=== PATIENT | female | born 1955 | race Caucasian/White ===

== ENCOUNTER → 2016-09-04 | Outpatient (REF) | payer BC | LOC: M LAB REF 16:18 | PROVIDERS: ATTEND Obstetrics & Gynecology | DX: N39.46 Mixed incontinence (principal) ==

== ENCOUNTER → 2016-09-16 | Outpatient (CLI) | payer OTHER ==
[~2016-09-16] MED LIST: ASPI1TAB PO; FLUO20CA8 PO; IBUP200C PO; NEXI40CA PO; VITA-130 PO; VITA500T3 PO
--- NOTE | 2016-09-16 11:02 | ECGEPIP ---
Stationary ECG Study [facility] Test Date: 2016-09-16 Pat Name: VILMA BIRMINGHAM Department: Room: - Gender: F [employer] Operator: CHRISTINE : 1955 Requested By: REGINA Jeong Order Number: [id number] Reading MD: Jacqui Carter Measurements Intervals [place] Rate: 54 P: 44 FL: 160 QRS: 10 QRSD: 90 T: 21 QT: 405 QTc: 385 Interpretive Statements SINUS BRADYCARDIA OTHERWISE NORMAL NO PRIOR Electronically Signed On 09-16-2016 11:02:50 EDT by Jacqui Carter
== END ==
LOC: M EKG 09:25
PROVIDERS: ATTEND Anesthesiology
DX: Z01.818 Encounter for other preprocedural examination (principal)

== ENCOUNTER → 2016-09-18 | Day surgery (SDC) | payer BC, OTHER ==
[~2016-09-18] VITALS: Ht 163.8 cm; Wt 73.9 kg
[~2016-09-18] MED LIST changes: +GLYCOPYRROLATE INJ 0.2 MG/ML 2 ML VIAL As Ordered ONE; +HYDROmorphone HCL 2 MG/ML 1ML VIAL (J1170) As Ordered ONE; +KETOROLAC 30 MG/ML VIAL (J1885) IV PRN; +LIDOCAINE 2% INJ 100 MG/5 ML SDV (FOR ANES.) As Ordered ONE; +LR 1,000 ML IV ONE; +LR 1,000 ML IV SCH; +MIDAZOLAM INJ 2 MG/2 ML VIAL (J2250) As Ordered ONE; +NEOSTIGMINE 1MG/ML 5 ML SYRINGE (J2710) As Ordered ONE; +ONDANSETRON 4MG/2ML VIAL (J2405) As Ordered ONE; +ONDANSETRON 4MG/2ML VIAL (J2405) IV PRN; +PERCOCET 5MG/325MG TAB As Ordered ONE; +PERCOCET 5MG/325MG TAB PO PRN; +PROPOFOL 200 MG/20 ML VIAL As Ordered ONE; +ROCURONIUM BROMIDE 50 MG/5 ML VIAL As Ordered ONE; +SCOPOLAMINE 1.5 MG TRANSDERMAL As Ordered ONE; +dexameTHASONE 4 MG/ML 1ML VIAL (J1100) As Ordered ONE; +ePHEDrine SULFATE 25 MG/5 ML(5MG/ML) SYRINGE As Ordered ONE; +fentaNYL 100 MCG/2 ML INJECTION (J3010) As Ordered ONE; +fentaNYL 250 MCG/5 ML INJECTION (J3010) As Ordered ONE
[2016-09-18 07:50] LABS: MEAN CORPUSCULAR HEMOGLOBIN 31.6 pg (27.0-33.0); MEAN CORPUSCULAR HGB CONC 32.6 g/dl (32.0-36.5); MEAN CORPUSCULAR VOLUME 96.8 fl (80.0-96.0); RED CELL DISTRIBUTION WIDTH 12.5 % (11.5-14.5); WHITE BLOOD COUNT 3.3 K/mm3 (4.0-10.0)
[2016-09-18] MEDS: VASOPRESSIN INJ 20 UNITS/ML VIAL As Ordered ONE ×2 (09:40→09:41)
[2016-09-18] MEDS: fentaNYL 100 MCG/2 ML INJECTION (J3010) IV PRN ×4 (12:36→12:52)
[2016-09-18] MEDS: MEPERIDINE INJ 25 MG/ML VIAL (J2175) IV PRN ×2 (13:07→13:17)
[2016-09-18 18:05] VITALS: BP 147/74
--- NOTE | 2016-09-20 18:58 | RO ---
DATE OF PROCEDURE: 09/18/2016 PREOPERATIVE DIAGNOSES/INDICATION FOR SURGERY: Symptomatic prolapse, stress urinary incontinence, and intrinsic sphincteric insufficiency. POSTOPERATIVE DIAGNOSES: Symptomatic prolapse, stress urinary incontinence, and intrinsic sphincteric insufficiency. PROCEDURE: Uterosacral suspension with anterior and posterior repair, perineorrhaphy, and midurethral sling (Desara) with cystourethroscopy. SURGEON: Karlene Bryant MD WEB MERCHANT: ANESTHESIA: General endotracheal anesthesia. BRIEF DESCRIPTION OF PROCEDURE AND FINDINGS: Jd was brought to the operating room where sufficient general endotracheal anesthesia was induced, and she was prepped, draped, and positioned in the usual sterile fashion. She had taken preoperative Pyridium at my request. The bladder was emptied, and the vaginal cuff was grasped. This patient has an external prolapse when at home but not a complete procidentia, about 3 cm out. Under anesthesia, it just sagged a little past the introitus while supine and not under any pressure. We injected with dilute vasopressin at the vaginal cuff and then made a transverse incision and carefully dissected away the cystocele and the enterocele sac and the rectocele. We then carefully worked our way posteriorly into the peritoneal cavity and the posterior aspect of the cystocele sac. We were then able, under traction, to grasp the uterosacral ligaments; and using those we placed three sutures on each side, two Prolene sutures which were #2-0 Prolene and then one #0 Vicryl, working the Prolenes more cephalad and the #0 Vicryl most caudad. We did this on both the left and the right uterosacral ligament. We then did cystoscopy, and there did not appear to be any efflux from the right ureter. So, we took down that side and re-did it, following which we were able to see with cystoscopy efflux of urine to the right ureter as well, of course with the stitches thrown. We then completed those pedicles, which had, of course, been secured anteriorly and posteriorly and were also used to close the enterocele sac; and as is my typical, the Vicryl was brought out into the vagina posteriorly, giving good posterior support to the vagina. We then removed an inverted rei of tissue anteriorly and dissecting back those tissues so that we could do an anterior repair, plicating the tissues side to side with #2-0 Vicryl. A similar thing was done posteriorly at the apex of the vagina where there was still some laxity. We then, separate from that dissection, having closed that space, proceeded to the perineorrhaphy with an inverted triangle of tissue removed at the perineum and then deep stitches of #0 Vicryl used to re-support the perineal body and reconnect it to the rectovaginal septum; and then the skin was closed there actually with #3-0. Then, we went anteriorly and injected again with vasopressin about a centimeter cephalad from the urethral meatus where there was a natural angle in the tissues. We then dissected laterally through the introduction of the trocar for the Desara midurethral sling, which was done bottom to top retropubically, and we carefully displaced the urethra to avoid injuring it using the red rubber-shod stylet and then placed first the left, then the right side trocar. There was some oozing on the right side, so after we had no trouble placing the left side trocar, there was no perforation of the bladder, etc., we then on the right side had some oozing there. I believe retropubic vessels because there was no injury to the bladder and we were working medial to our marker, so we watched this and observed it. I think in total she has about 100 mL blood loss for this case, some of which was in a small clot there, but it stopped on its own. Of course, we cannot really put good pressure there, but I could have opened that up and put anticoagulant, but I did not think it was needed because we watched this. It did not continue to expand. We were able to see it quite readily. I really only think it was well less than a 10 mL syringe size clot, so maybe 5 mL of clot visible displacing the bladder, and it did come up through the suprapubic exit port, but we sat and watched that and it stopped and did not appear to be collecting underneath and, of course, we had the mesh through, so there was a wick there that if it was continuing to expand, that it should have been able to track up easily and it did not track back down into the vaginal one, so I believe that that stopped on its own. So, we then put the spacer in, a #8 Lizeth, and the red rubber-shod and arsen the mesh up around those for a spacer and then removed the sheathing and trimmed off the mesh and, of course, removed the spacing and closed the vaginal and suprapubic wounds. The bladder was then again emptied, and the procedure was then ended. ESTIMATED BLOOD LOSS: Again, about 100 mL total for all the different steps. SPECIMEN: Just the redundant vaginal tissue. COMPLICATIONS: None. CONDITION AND DISPOSITION: Jd tolerated the procedure quite well. She was recovering in the recovery room in good condition. She has asked to be considered for discharge home today rather than tomorrow, so we are going to do a 4-hour postoperative hemoglobin and hematocrit and, of course, make sure she can void; but otherwise, we will go ahead and let her go today assuming all of those things fitter and turner well.
== END | disposition home or self-care (01) ==
LOC: M SDC 07:26
PROVIDERS: ATTEND Obstetrics & Gynecology
DX: N81.9 Female genital prolapse, unspecified (principal); N39.3 Stress incontinence (female) (male); N36.42 Intrinsic sphincter deficiency (ISD); C50.919 Malignant neoplasm of unspecified site of unspecified female breast; K21.9 Gastro-esophageal reflux disease without esophagitis; D72.819 Decreased white blood cell count, unspecified; F32.9 Major depressive disorder, single episode, unspecified; Z79.899 Other long term (current) drug therapy; Z79.82 Long term (current) use of aspirin; Z87.81 Personal history of (healed) traumatic fracture; Z90.710 Acquired absence of both cervix and uterus; Z92.3 Personal history of irradiation; Z92.21 Personal history of antineoplastic chemotherapy
CPT/HCPCS: 36415; 57283; 57288; 85014; 85018; 85027; 86850; 86900; 86901; 88302; C1771; J0690; J1100; J1170; J2175; J2250; J2405; J2710; J3010

== ENCOUNTER → 2017-01-03 | Outpatient (REF) | payer OTHER ==
[~2017-01-03] MED LIST changes: -GLYCOPYRROLATE INJ 0.2 MG/ML 2 ML VIAL As Ordered ONE; -HYDROmorphone HCL 2 MG/ML 1ML VIAL (J1170) As Ordered ONE; -IBUP200C PO; +IBUP200C10 PO; -KETOROLAC 30 MG/ML VIAL (J1885) IV PRN; -LIDOCAINE 2% INJ 100 MG/5 ML SDV (FOR ANES.) As Ordered ONE; -LR 1,000 ML IV ONE; -LR 1,000 ML IV SCH; -MIDAZOLAM INJ 2 MG/2 ML VIAL (J2250) As Ordered ONE; -NEOSTIGMINE 1MG/ML 5 ML SYRINGE (J2710) As Ordered ONE; -ONDANSETRON 4MG/2ML VIAL (J2405) As Ordered ONE; -ONDANSETRON 4MG/2ML VIAL (J2405) IV PRN; -PERCOCET 5MG/325MG TAB As Ordered ONE; -PERCOCET 5MG/325MG TAB PO PRN; -PROPOFOL 200 MG/20 ML VIAL As Ordered ONE; -ROCURONIUM BROMIDE 50 MG/5 ML VIAL As Ordered ONE; -SCOPOLAMINE 1.5 MG TRANSDERMAL As Ordered ONE; -VITA-130 PO; +VITA500T PO; -dexameTHASONE 4 MG/ML 1ML VIAL (J1100) As Ordered ONE; -ePHEDrine SULFATE 25 MG/5 ML(5MG/ML) SYRINGE As Ordered ONE; -fentaNYL 100 MCG/2 ML INJECTION (J3010) As Ordered ONE; -fentaNYL 250 MCG/5 ML INJECTION (J3010) As Ordered ONE
[2017-01-03 13:37] LABS: BASO % 1.1 % (0.0-1.0); EOS # 0.1 K/mm3 (0.0-0.50); EOS % 3.7 % (0.0-3.0); LARGE UNSTAINED CELL # 0.1 K/mm3 (0.0-0.4); LARGE UNSTAINED CELL % 1.8 % (0.0-4.0); LYMPH # 0.5 K/mm3 (1.5-4.5); LYMPH % 18.6 % (24.0-44.0); MEAN CORPUSCULAR HEMOGLOBIN 31.3 pg (27.0-33.0); MEAN CORPUSCULAR HGB CONC 34.3 g/dl (32.0-36.5); MEAN CORPUSCULAR VOLUME 91.2 fl (80.0-96.0); MONO # 0.2 K/mm3 (0.0-0.8); MONO % 7.3 % (0.0-5.0); NEUTROPHILS # 1.8 K/mm3 (1.8-7.7); NEUTROPHILS % 67.5 % (36.0-66.0); PLATELET COUNT, AUTOMATED 242 k/mm3 (150-450); RED CELL DISTRIBUTION WIDTH 12.6 % (11.5-14.5); WHITE BLOOD COUNT 2.7 K/mm3 (4.0-10.0)
[2017-01-03 13:44] LABS: ALBUMIN 3.9 GM/DL (3.2-5.2); ALBUMIN/GLOBULIN RATIO 1.34 (1.00-1.93); ALKALINE PHOSPHATASE 80 U/L (45-117); ALT/SGPT 19 U/L (12-78); ANION GAP 5 MEQ/L (8-16); AST/SGOT 13 U/L (15-37); BILIRUBIN,TOTAL 0.6 MG/DL (0.2-1.0); BLOOD UREA NITROGEN 18 MG/DL (7-18); CALCIUM LEVEL 8.9 MG/DL (8.8-10.2); CARBON DIOXIDE LEVEL 29 MEQ/L (21-32); CHLORIDE LEVEL 107 MEQ/L (98-107); CREATININE FOR GFR 0.62 MG/DL (0.55-1.02); FREE T4 0.93 NG/DL (0.76-1.46); GLOMERULAR FILTRATION RATE > 60.0 (>45); GLUCOSE, FASTING 83 MG/DL (80-110); POTASSIUM SERUM 4.2 MEQ/L (3.5-5.1); SODIUM LEVEL 141 MEQ/L (136-145); TOTAL PROTEIN 6.8 GM/DL (6.4-8.2)
== END ==
LOC: M SFHCADAM 08:52
PROVIDERS: ATTEND Family Medicine
DX: R13.10 Dysphagia, unspecified (principal); F32.89 Other specified depressive episodes; E55.9 Vitamin D deficiency, unspecified

== ENCOUNTER → 2017-01-24 | Outpatient (CLI) | payer OTHER ==
[~2017-01-24] MED LIST changes: +E-Z-GAS II EFFERVESCENT PACKET (SODIUM BICARB./CITRIC ACID/SIMETHICONE) As Ordered ONE; +E-Z-HD 98% w/w 340GM SUSP BTL As Ordered ONE; +E-Z-PAQUE 96% w/w SUSP 176GM BTL As Ordered ONE
--- NOTE | 2017-01-24 17:01 | REP ---
BARIUM SWALLOW: The procedure was performed by JUMANA Lawson under the direct supervision of Dr. Castellano. All imaging was reviewed with Dr. Castellano prior to dictation. The patient was able to ingest liquid barium and air in a quantity sufficient to produce a double contrast examination. The oral and pharyngeal stages of deglutition were within normal limits. Esophageal transport was prompt and efficient. There was no evidence of esophagitis, stricture or mucosal ring. Gastroesophageal reflux was observed to the level of the carol. The patient also has a moderate sized hiatal hernia. IMPRESSION: Gastroesophageal reflux to the level of the carol. Moderate sized hiatal hernia present. Fluoroscopy time was 1 minute and 57 seconds. Reviewed by JUMANA Dueñas 01/24/2017 05:05 PEdited and Signed by Eleazar Castellano MD 01/25/2017 07:57 P
== END ==
LOC: M RAD 07:35
PROVIDERS: ATTEND Family Medicine
DX: R13.13 Dysphagia, pharyngeal phase (principal)

== ENCOUNTER → 2017-02-14 | Outpatient (REF) | payer OTHER ==
[~2017-02-14] MED LIST changes: -E-Z-GAS II EFFERVESCENT PACKET (SODIUM BICARB./CITRIC ACID/SIMETHICONE) As Ordered ONE; -E-Z-HD 98% w/w 340GM SUSP BTL As Ordered ONE; -E-Z-PAQUE 96% w/w SUSP 176GM BTL As Ordered ONE
[2017-02-14 22:03] LABS: REASON FOR REVIEW COMPREHENSIVE REVIEW
== END ==
LOC: M LAB REF 17:32
PROVIDERS: ATTEND Internal Medicine Medical Oncology
DX: D72.810 Lymphocytopenia (principal)